=== PATIENT | male | born 1975 | race Caucasian/White ===

== ENCOUNTER 2024-06-12 11:20 | Inpatient (IN) | payer OTHER ==
[2024-06-12 11:54] VITALS: BMI 31.7
[2024-06-12] MEDS ORDERED: BENZONATATE 200 MG CAPSULE PO PRN (13:21)
[2024-06-12] MEDS ORDERED: ACETAMINOPHEN 325 MG TABLET (FP) PO PRN (13:21)
[2024-06-12] MEDS ORDERED: MAG HYDROX/AL HYDROX/SIMETH 30 ML UNIT-DOSE CUP PO PRN (13:21)
[2024-06-12] MEDS ORDERED: guaiFENesin 600 MG TABLET.ER (FP) PO PRN (13:21)
[2024-06-12] MEDS ORDERED: IBUPROFEN 400 MG TABLET (FP) PO PRN (13:21)
[2024-06-12] MEDS ORDERED: NALOXONE (NYS OPIOID OVERDOSE PROGRAM) 4 MG/0.1 ML SPRAY NS PRN (13:21)
[2024-06-12] MEDS ORDERED: IBUPROFEN 600 MG TABLET (FP) PO PRN (13:21)
[2024-06-12] MEDS ORDERED: BENZOCAINE/MENTHOL (CHLORASEPTIC ) LOZENGE MM PRN (13:21)
[2024-06-12] MEDS ORDERED: MAGNESIUM HYDROX 2400MG/30ML ORAL SUSPENSION 30 ML CUP PO PRN (13:21)
[2024-06-12] MEDS ORDERED: BISMUTH SUBSALICYLATE 524 MG/30 ML PO PRN (13:21)
[2024-06-12] MEDS ORDERED: LOPERAMIDE HCL 2 MG CAPSULE PO PRN (13:21)
[2024-06-12] MEDS ORDERED: POLYETHYLENE GLYCOL (HEALTHYLAX) 3350 17 GM PACKET PO PRN (13:21)
[2024-06-12] MEDS ORDERED: NALOXONE (NARCAN) HCL 4 MG/0.1 ML SPRAY NS PRN (13:21)
[2024-06-12] MEDS ORDERED: DICYCLOMINE HCL 10 MG CAPSULE PO PRN (13:21)
[2024-06-12] MEDS ORDERED: LORazepam 1 MG TABLET PO PRN (13:45)
[2024-06-12] MEDS ORDERED: methaDONE HCL 10 MG TABLET (FOR DETOX USE ONLY) ONE (14:25)
[2024-06-12] MEDS ORDERED: cloNIDine HCL 0.1 MG TABLET ONE (14:26)
[2024-06-12] MEDS ORDERED: amLODIPine BESYLATE 5 MG TABLET (FP) ONE (14:26)
[2024-06-12] MEDS ORDERED: BUPRENORPHINE/NALOXONE 0.5 MG/0.125 MG FILM ONE (14:26)
[2024-06-12] MEDS: BUPRENORPHINE/NALOXONE 0.5 MG/0.125 MG FILM SL ONE ×2 (14:31→22:35)
[2024-06-12] MEDS: methaDONE HCL 10 MG TABLET (FOR DETOX USE ONLY) PO ONE (14:31)
[2024-06-12] MEDS: cloNIDine HCL 0.1 MG TABLET PO SCH (14:31)
[2024-06-12] MEDS: amLODIPine BESYLATE 10 MG TABLET (FP) PO ONE (14:32)
[2024-06-12] MEDS: LORazepam 2 MG TABLET PO SCH (17:43)
[2024-06-12] MEDS: MELATONIN 5 MG TABLETS PO SCH (22:33)
[2024-06-12] MEDS: THIAMINE 100 MG TABLET PO SCH (22:34)
[2024-06-12] MEDS: METHOCARBAMOL 500 MG TABLET PO PRN (22:34)
[2024-06-13] MEDS: BUPRENORPHINE/NALOXONE 0.5 MG/0.125 MG FILM SL SCH (10:17)
[2024-06-13] MEDS: amLODIPine BESYLATE 5 MG TABLET (FP) PO SCH (10:17)
[2024-06-13] MEDS: PRENATAL VITAMINS W/ FOLIC ACID TABLET (FP) PO SCH (10:18)
[2024-06-13 14:42] LABS: HEMATOCRIT 38.8 % (35.4-49); MCHC 33.5 g/dl (32.0-35.9); MEAN CELL VOLUME 86.5 fl (80-96); MEAN PLT VOLUME 10.3 fl (7.5-11.1); PLATELET COUNT 190 10^3/uL (134-434); RBC 4.49 M/mm3 (4.00-5.60); RDW 14.5 % (11.9-15.9); WHITE BLOOD COUNT 6.2 K/mm3 (4.0-10.0)
[2024-06-13 14:56] LABS: POTASSIUM 3.7 mmol/L (3.5-5.1)
[2024-06-13 15:00] LABS: BLOOD UREA NITROGEN 18.5 mg/dL (7-18); CALCIUM 9.2 mg/dL (8.5-10.1)
[2024-06-13 15:01] LABS: ALBUMIN 3.8 g/dl (3.4-5.0)
[2024-06-13 15:04] LABS: CREATININE 1.2 mg/dL (0.55-1.3)
[2024-06-13 15:05] LABS: BILIRUBIN,TOTAL 0.8 mg/dL (0.2-1); TOT PROT 7.2 g/dl (6.4-8.2)
[2024-06-13] MEDS: traZODone HCL 100 MG TABLET (FP) PO SCH (22:52)
[2024-06-14] MEDS: LORazepam 1 MG TABLET PO SCH (05:54)
[2024-06-14] MEDS: methaDONE HCL 10 MG TABLET (FOR DETOX USE ONLY) PO ONE (10:17)
[2024-06-14] MEDS: BUPRENORPHINE/NALOXONE 2 MG/0.5 MG FILM PACKET SL SCH (10:17)
[2024-06-14] MEDS: ONDANSETRON *ODT* 4 MG TABLET SL PRN (10:20)
[2024-06-15] MEDS ORDERED: LORazepam 0.5 MG TABLET PO PRN
[2024-06-15] MEDS: LORazepam 0.5 MG TABLET PO SCH (05:59)
[2024-06-15] MEDS: BUPRENORPHINE/NALOXONE 4 MG/1 MG FILM PACKET SL SCH (10:05)
[2024-06-15] MEDS: hydrOXYzine PAMOATE 25 MG CAPSULE (FP) PO PRN (12:03)
[2024-06-16] MEDS: LORazepam 0.5 MG TABLET PO ONE (05:54)
[2024-06-16] MEDS: BUPRENORPHINE/NALOXONE 8 MG/2 MG FILM PACKET SL SCH (09:18)
[2024-06-16] MEDS: methaDONE HCL 10 MG TABLET (FOR DETOX USE ONLY) PO ONE (09:18)
[2024-06-17] MEDS: BUPRENORPHINE/NALOXONE 8 MG/2 MG FILM PACKET SL SCH (10:14)
[2024-06-17 13:15] VITALS: BP 142/89; PULSE 80; RESP 16; TEMP 98.4
== END 2024-06-17 15:13 | disposition other institution (70) | DRG 773 ==
LOC: YASAS 11:20 → Y3N 14:19
PROVIDERS: ADMIT Allergy & Immunology; ATTEND Surgery
PROC: HZ2ZZZZ Detoxification Services for Substance Abuse Treatment (ICD-10-PCS; principal; 2024-06-12)
DX: F11.23 Opioid dependence with withdrawal (principal); F10.230 Alcohol dependence with withdrawal, uncomplicated; F14.20 Cocaine dependence, uncomplicated; F19.282 Other psychoactive substance dependence with psychoactive substance-induced sleep disorder; F41.9 Anxiety disorder, unspecified; G47.00 Insomnia, unspecified; Z87.891 Personal history of nicotine dependence
CPT/HCPCS: 36415; 80053; 80305; 80307; 85027; 86780; 93005; 93010; Q0162

== ENCOUNTER 2024-06-17 14:44 | Inpatient (IN) | payer OTHER ==
[2024-06-17] MEDS ORDERED: BENZONATATE 200 MG CAPSULE PO PRN (15:24)
[2024-06-17] MEDS ORDERED: ACETAMINOPHEN 325 MG TABLET (FP) PO PRN (15:24)
[2024-06-17] MEDS ORDERED: POLYETHYLENE GLYCOL (HEALTHYLAX) 3350 17 GM PACKET PO PRN (15:24)
[2024-06-17] MEDS ORDERED: BENZOCAINE/MENTHOL (CHLORASEPTIC ) LOZENGE MM PRN (15:24)
[2024-06-17] MEDS ORDERED: MAG HYDROX/AL HYDROX/SIMETH 30 ML UNIT-DOSE CUP PO PRN (15:24)
[2024-06-17] MEDS ORDERED: LOPERAMIDE HCL 2 MG CAPSULE PO PRN (15:24)
[2024-06-17] MEDS ORDERED: MAGNESIUM HYDROX 2400MG/30ML ORAL SUSPENSION 30 ML CUP PO PRN (15:24)
[2024-06-17] MEDS ORDERED: IBUPROFEN 400 MG TABLET (FP) PO PRN (15:24)
[2024-06-17] MEDS ORDERED: guaiFENesin 600 MG TABLET.ER (FP) PO PRN (15:24)
[2024-06-17] MEDS: MELATONIN 5 MG TABLETS PO SCH (22:03)
[2024-06-17] MEDS: THIAMINE 100 MG TABLET PO SCH (22:03)
[2024-06-17] MEDS: traZODone HCL 100 MG TABLET (FP) PO SCH (22:04)
[2024-06-17] MEDS: BUPRENORPHINE/NALOXONE 8 MG/2 MG FILM PACKET SL SCH (22:05)
[2024-06-18] MEDS: PRENATAL VITAMINS W/ FOLIC ACID TABLET (FP) PO SCH (06:27)
[2024-06-18] MEDS: amLODIPine BESYLATE 5 MG TABLET (FP) PO SCH (09:03)
[2024-06-18] MEDS: IBUPROFEN 600 MG TABLET (FP) PO PRN (17:42)
[2024-06-18] MEDS: METHOCARBAMOL 500 MG TABLET PO PRN (17:43)
[2024-06-18] MEDS: hydrOXYzine PAMOATE 25 MG CAPSULE (FP) PO PRN (21:52)
[2024-06-19] MEDS: SUVOREXANT 10 MG TABLET PO PRN (21:27)
[2024-06-20] MEDS: amLODIPine BESYLATE 10 MG TABLET (FP) PO SCH (09:34)
[2024-06-20] MEDS: SUVOREXANT 15 MG TABLET PO PRN (21:17)
[2024-06-21] MEDS: BUPRENORPHINE/NALOXONE 2 MG/0.5 MG FILM PACKET SL SCH (12:03)
[2024-06-21] MEDS: BACLOFEN 10 MG TABLET (FP) PO SCH (21:30)
[2024-06-21] MEDS: SUVOREXANT 20 MG TABLET PO PRN (21:31)
[2024-06-25] MEDS: SUVOREXANT 20 MG TABLET PO PRN (21:28)
[2024-06-26] MEDS: QUEtiapine FUMARATE 50 MG TABLET PO SCH (21:18)
[2024-07-03] MEDS: QUEtiapine FUMARATE 100 MG TABLET (FP) PO SCH (21:41)
[2024-07-05] MEDS: QUEtiapine FUMARATE 50 MG TABLET PO SCH (21:26)
[2024-07-12 07:03] VITALS: TEMP 97.5
[2024-07-12 08:58] VITALS: PULSE 76
[2024-07-13 06:22] VITALS: BP 153/88; RESP 16
== END 2024-07-13 09:46 | disposition home or self-care (01) | DRG 772 ==
LOC: YASAS 14:44 → Y3NR 14:46 → Y3W 06-20 09:43
PROVIDERS: ADMIT Neuromusculoskeletal Medicine & OMM; ATTEND Psychiatry & Neurology Pain Medicine
PROC: HZ42ZZZ Group Counseling for Substance Abuse Treatment, Cognitive-Behavioral (ICD-10-PCS; principal; 2024-06-17)
DX: F11.20 Opioid dependence, uncomplicated (principal); F10.20 Alcohol dependence, uncomplicated; F14.20 Cocaine dependence, uncomplicated; F12.20 Cannabis dependence, uncomplicated; F17.210 Nicotine dependence, cigarettes, uncomplicated; F19.282 Other psychoactive substance dependence with psychoactive substance-induced sleep disorder; Z87.891 Personal history of nicotine dependence
CPT/HCPCS: 80305; 82962; 87811; J0475